=== PATIENT | female | born 1995 | race Caucasian/White ===

== ENCOUNTER 2017-02-28 02:37 | Inpatient (IN) | payer OTHER ==
[2017-02-28] MEDS ORDERED: D5W-LR W/ 20 UNITS OXYTOCIN 1,000 ML IV SCH (03:15)
[2017-02-28] MEDS ORDERED: BUTORPHANOL TARTRATE 1 MG/ML VIAL IVPB ONE (03:30)
[2017-02-28] MEDS ORDERED: WITCH HAZEL 50% (TUCKS) 40 PAD/JAR PAD TP PRN (04:31)
[2017-02-28] MEDS ORDERED: oxyCODONE HCL 5 MG TABLET PO PRN (04:31)
[2017-02-28] MEDS ORDERED: BENZOCAINE 28 GM HEMORRHOIDAL OINTMENT TP PRN (04:31)
[2017-02-28] MEDS ORDERED: BENZOCAINE 20% 57 GM BOTTLE TP PRN (04:31)
[2017-02-28] MEDS ORDERED: BISACODYL 10 MG SUPP.RECT RC PRN (04:31)
[2017-02-28] MEDS ORDERED: METHYLERGONOVINE MALEATE 0.2 MG/1 ML AMP IM PRN (04:31)
--- NOTE | 2017-02-28 04:42 | HP ---
Past Medical History - Primary Care Physician PCP:: Shelby Martinez - Admission Chief Complaint: 21 yrs 40.2 weeks by sono & 41.2 weeks by dates s/p home delivery brought by ambulence . onset LP whole day, strong since Midnight. at 1.42am , baby Boy, cried immediately , attended by her mother. placenta ,2.00am History of Present Illness: PNC at [address] [place] [address] . pnwork up : Apos, HBSAg neg, Rpr nr, Hiv neg, Rubella pos, pngt 108, quantiferon neg , Gbs neg sono reviewed History Source: Patient, Medical Record Limitations to Obtaining History: No Limitations - Past Medical History SERVICE ADVOCATE CONTACT: No: Migraine, Seizure Cardiovascular: No: HTN Pulmonary: No: Asthma Gastrointestinal: Yes: Constipation Renal/: No: UTI ...: 3 ...Para: 1 ...Term: 1 (02/09/16 7'6") ...Spon : 1 (2014) ...LMP: 05/14/16 ... Weeks Gestation by Dates: 41.2 ...EDC by Dates: 02/18/17 ...EDC by Sono: 02/25/17 (40.3 weeks ) Heme/Onc: Yes: Anemia Infectious Disease: No: AIDS, HIV, STD's Psych: No: Addictions, Anxiety, Bipolar, Depression Musculoskeletal: Yes: Other (h/o shoulder dislocation) - Past Surgical History Past Surgical History: Yes: None Hx Myomectomy: No Hx Transabdominal Cerclage: No - Smoking History Smoking history: Never smoked Have you smoked in the past 12 months: No - Alcohol/Substance Use Hx Alcohol Use: No History of Substance Use: reports: None - Social History History of Recent Travel: No Home Medications - Allergies Allergies/Adverse Reactions: Allergies Allergy/AdvReac Type Severity Reaction Status Date / Time No Known Allergies Allergy Verified 02/07/16 12:15 - Home Medications Home Medications: Ambulatory Orders Vit/Iron Fumarate/FA [ Tablet] 1 tab PO DAILY 02/07/16 Acetaminophen [Tylenol .Regular Strength -] 650 mg PO Q3H PRN #0 tablet Benzocaine [Americaine 20% [place] -] 1 spray TP PRN PRN #0 bottle 02/11/16 Ferrous Sulfate [Feosol] 325 mg PO BIDWM #60 ud 02/11/16 Ibuprofen [Motrin -] 200 mg PO Q4H PRN #0 tablet 02/11/16 Ibuprofen [Motrin -] 400 mg PO QID #28 tablet 02/11/16 Physical Exam - Maternity Vital Signs: Selected Entries 02/28/17 03:00 Temperature 98.4 F Pulse Rate 99 H Blood Pressure 109/94 Weight 170 lb Constitutional: Yes: Well Nourished, Anxious, Moderate Distress Eyes: Yes: WNL HENT: Yes: WNL, Normocephalic Neck: Yes: WNL Cardiovascular: Yes: WNL, Regular Rate and Rhythm Lungs: Clear to auscultation Breast(s): Yes: WNL - Abdominal Exam/OB Fundal Height: 18 (pp uterus, s/p home delivery ) - Vaginal Exam/OB Vaginal Bleediing: Moderate (s/p home delivery vaginal delivery, blood clots removed from vagina & uterus MEU was done , ut empty 2nd degree laceration is noted. MA exam mucosa & sphincter intact) - Physical Exam Musculoskeletal: Yes: WNL Extremities: Yes: WNL. No: Calf Tenderness Edema: Yes Edema: LLE: 1+, RLE: 1+ Integumentary: Yes: Other (vaginal laceration) Deep Tendon Reflex Grade: Normal +2 ...Motor Strength: WNL Psychiatric: Yes: WNL, Alert, Oriented - Labs Lab Results: Laboratory Tests 02/28/17 02/28/17 02/28/17 04:15 04:15 04:15 WBC 20.1 H D Hgb 9.4 L Hct 29.1 L Plt Count 269 D Neutrophils % 94.6 H Lymphocytes % 3.1 L D Monocytes % 2.1 L INR 1.03 PTT (Actin FS) 24.9 L Sodium 140 Potassium 3.8 Chloride 108 H Carbon Dioxide 20 L BUN 7 D Creatinine 0.7 D Random Glucose 216 H D Calcium 8.2 L Opiates Screen Methadone Screen Cocaine Screen U Marijuana (THC) Screen RPR Titer 02/28/17 02/28/17 04:15 10:00 WBC Hgb Hct Plt Count Neutrophils % Lymphocytes % Monocytes % INR PTT (Actin FS) Sodium Potassium Chloride Carbon Dioxide BUN Creatinine Random Glucose Calcium Opiates Screen Negative Methadone Screen Negative Cocaine Screen Negative U Marijuana (THC) Screen Negative RPR Titer Nonreactive Problem List - Problems (1) Post-term , 40-42 weeks of gestation Code(s): O48.0 - POST-TERM (2) Vaginal delivery Code(s): O80 - ENCOUNTER FOR FULL-TERM UNCOMPLICATED DELIVERY (3) Second degree perineal laceration during delivery Code(s): O70.1 - SECOND DEGREE PERINEAL LACERATION DURING DELIVERY Assessment/Plan 21 yrs , 40.3 weeks by sono, 41.2 weeks by dates s/p Home deivery of infant & placenta , gbs neg Imp 2 nd degree laceration MEU done . IV Stadol 2 mg sta was given for analgesia Laceration sutured in layers with chr catgut #2/0 under local anesthesia xylocaine 1% MA ex after completion of suturing was done , sphincter & mucosa intact . bladder cathetrized & emptied 250 ml maricarmen color urine
[2017-02-28 04:53] LABS: BASOPHIL 0.1 % (0-2.0); EOSINOPHIL 0.1 % (0-4.5); MCH 27.3 pg (25.7-33.7); MCHC 32.2 g/dl (32.0-36.0); MEAN CELL VOLUME 84.9 fl (80-96); NEUTROPHILS 94.6 % (42.8-82.8); PLATELET COUNT 269 K/MM3 (134-434); RDW 16.7 % (11.6-15.6); WHITE BLOOD COUNT 20.1 K/mm3 (4.0-10.0)
[2017-02-28 05:05] LABS: INR 1.03 (0.82-1.09); PROTHROMBIN TIME (PATIENT) 11.3 SEC (9.98-11.88)
[2017-02-28 05:08] LABS: ACTIVATED PTT 24.9 SECONDS (26.9-34.4)
[2017-02-28 05:11] LABS: CALCIUM 8.2 mg/dL (8.5-10.1); CREATININE 0.7 mg/dL (0.55-1.02)
[2017-02-28 07:21] VITALS: BMI 28.3
[2017-02-28] MEDS: ACETAMINOPHEN 325 MG TABLET (FP) PO PRN ×2 (08:08→16:51)
[2017-02-28] MEDS: FERROUS SO4 325 MG TABLET (FP) PO SCH ×2 (08:08→16:51)
[2017-02-28] MEDS: IBUPROFEN 600 MG TABLET (FP) PO PRN ×2 (08:09→16:51)
[2017-02-28] MEDS: PRENATAL VITAMINS W/ FOLIC ACID TABLET (FP) PO SCH (09:28)
[2017-02-28 11:16] LABS: URINE MARIJUANA THC NEGATIVE ng/ml (CUTOFF=50)
--- NOTE | 2017-03-01 07:29 | PN ---
Post Progress Note Type of Delivery: Vital Signs: Vital Signs Temperature 97.8 F 02/28/17 22:00 Pulse Rate 97 H 02/28/17 22:00 Respiratory Rate 20 02/28/17 22:00 Blood Pressure 99/53 02/28/17 22:00 O2 Sat by Pulse Oximetry (%) Breast Exam: Yes: Soft Uterus: Yes: Fundus Firm Incision: Yes: Dressing dry and intact Abdomen/GI: Yes: Abdomen soft Lochia: Yes: Rubra Lochia, amount: Small Extremities: Yes: Calves non-tender Perineum: Yes: Intact Activity: Ambulating - Labs Labs: CBC WBC 20.1 K/mm3 (4.0-10.0) H D 02/28/17 04:15 RBC 3.43 M/mm3 (3.60-5.2) L 02/28/17 04:15 Hgb 9.4 GM/dL (10.7-15.3) L 02/28/17 04:15 Hct 29.1 % (32.4-45.2) L 02/28/17 04:15 MCV 84.9 fl (80-96) 02/28/17 04:15 MCHC 32.2 g/dl (32.0-36.0) 02/28/17 04:15 RDW 16.7 % (11.6-15.6) H D 02/28/17 04:15 Plt Count 269 K/MM3 (134-434) D 02/28/17 04:15 MPV 8.0 fl (7.5-11.1) 02/28/17 04:15 Neutrophils % 94.6 % (42.8-82.8) H 02/28/17 04:15 Lymphocytes % 3.1 % (8-40) L D 02/28/17 04:15 Monocytes % 2.1 % (3.8-10.2) L 02/28/17 04:15 Eosinophils % 0.1 % (0-4.5) D 02/28/17 04:15 Basophils % 0.1 % (0-2.0) 02/28/17 04:15 Assessment/Plan as above reg diet oob check labs
[2017-03-01] MEDS: FERROUS SO4 325 MG TABLET (FP) PO SCH ×2 (07:53→17:08)
[2017-03-01] MEDS: ACETAMINOPHEN 325 MG TABLET (FP) PO PRN ×2 (07:53→17:08)
[2017-03-01] MEDS: IBUPROFEN 600 MG TABLET (FP) PO PRN ×2 (07:54→17:09)
[2017-03-01] MEDS: PRENATAL VITAMINS W/ FOLIC ACID TABLET (FP) PO SCH (09:12)
[2017-03-01 09:16] LABS: BASOPHIL 0.4 % (0-2.0); EOSINOPHIL 2.6 % (0-4.5); MCH 27.7 pg (25.7-33.7); MCHC 32.3 g/dl (32.0-36.0); MEAN CELL VOLUME 85.8 fl (80-96); NEUTROPHILS 73.5 % (42.8-82.8); PLATELET COUNT 277 K/MM3 (134-434); RDW 16.9 % (11.6-15.6); WHITE BLOOD COUNT 13.6 K/mm3 (4.0-10.0)
[2017-03-01] MEDS ORDERED: SENNOSIDES/DOCUSATE COMBO (SENNA PLUS) TABLET (UD) PO PRN (22:00)
[2017-03-02] MEDS: FERROUS SO4 325 MG TABLET (FP) PO SCH (08:18)
[2017-03-02] MEDS: IBUPROFEN 600 MG TABLET (FP) PO PRN (08:18)
[2017-03-02] MEDS: ACETAMINOPHEN 325 MG TABLET (FP) PO PRN (08:19)
[2017-03-02] MEDS: PRENATAL VITAMINS W/ FOLIC ACID TABLET (FP) PO SCH (09:18)
--- NOTE | 2017-03-02 09:21 | PN ---
Progress Note (short form) - Note Progress Note: ppd 1 doing well, no c/o CBC, BMP 03/01/17 08:00 02/28/17 04:15 Last Vital Signs Temp Pulse Resp BP Pulse Ox 98.3 F 100 H 20 116/66 03/01/17 20:47 03/01/17 20:47 03/01/17 20:47 03/01/17 20:47 abdomen soft, uterus firm, non tender lochia mild no calf tenderness plan ambulate, d/c home, rtc 4 weeks
[2017-03-02 14:10] VITALS: BP 110/77; PULSE 109; TEMP 98.8
--- NOTE | 2017-03-02 14:18 | PATH ---
Surgical Pathology Report Patient Name: MATTHEW CHANEL Med. Rec. 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 Specimen(s) Received PLACENTA Clinical History , 40.3 weeks; home delivery Final Diagnosis PLACENTA, DELIVERY: FOCALLY DISRUPTED THIRD TRIMESTER PLACENTA WITH FOCAL INFARCT AND FIBRIN THROMBUS WITH CALCIFICATIONS, MODERATE TO MARKED INCREASE IN PREVILLOUS, PERIVILLOUS, AND PRECHORIONIC FIBRIN DEPOSITION, DYSTROPHIC CALCIFICATIONS, THREE VESSEL UMBILICAL CORD, AND PLACENTAL MEMBRANES WITH AMNION DEGENERATION. Electronically Signed Mookie Osorio M.D. Gross Description The specimen is received fresh, labeled "placenta" and is a 596 gram, 19.5 x 15.0 x 2.0 cm placenta with attached membranes and umbilical cord. The attached membranes are bell, translucent with focal opacities and insert marginally. The umbilical cord measures 27 cm in length and averages 1.0 cm in diameter. The cord inserts eccentrically, 6 cm to the nearest margin. No true knots or strictures are identified. Cut surface of the umbilical cord reveals 3 vessels. The surface is babb-blue with fibrin deposition and appropriate caliber vessels. The maternal surface is red-brown with focal defects. Sectioning reveals a 1.0 cm in greatest dimension intraparenchymal lesion. The remaining placental parenchyma is red-brown and spongy. Inspector Water Pollution Control sections are submitted in 4 cassettes as follows: 1-membrane rolls and umbilical cord; 2-lesion; 3-4-full thickness sections of placenta. 03/01/2017 saudi03/01/2017
--- NOTE | 2017-03-06 18:05 | DS ---
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 No: Calf Tenderness Edema: Yes Edema: LLE: Trace, RLE: Trace Neurological: Yes: WNL ...Motor Strength: WNL Psychiatric: Yes: WNL, Alert, Oriented Labs: CBC, BMP 03/01/17 08:00 02/28/17 04:15 Delivery - Delivery Vaginal Delivery: No Problems (Home delivery) Type of Anesthesia: Local Episiotomy/Laceration: 2nd degree (laceration sutured in layers with chr catgut #2/0) Delivery, Single - Stages of Labor Date 1st Stage Initiatied: 02/28/17 Time 1st Stage Initiated: 00:00 Date of Delivery: 02/28/17 Time of Delivery: 01:42 (home delivery ) Time Placenta Delivered: 02:00 Placenta: Yes: Spontaneous (at home) - Condition of Global Position System Technician/Correctional Therapy Teacher Present: No Infant Gender: Male Weight: 8 lb 13 oz - Nora Feeding Plan Initial Plan: Elected not to breastfeed exclusively throughout hospitalization Remarks - Remarks Remarks: 21 yrs 40.2 weeks by sofiao, 41.2 weeks by arslan had delivery at home & was brought by EMT 2 nd degree laceration was sutured Pp course was uneventful. anemia was counselled discharged on 03/02/17 Discharge Summary Reason For Visit: HOME DELIVERY Condition: Stable - Instructions Diet, Activity, Other Instructions: Post Instructions DIET: Continue good diet high in protein, calcium, and iron rich foods. Drink at least eight (8) glasses of water daily in addition to other fluids. ct Regular diet MEDICATIONS: Continue vitamins and iron as previously directed. Motrin and Tylenol may be taken for minor discomfort. ACTIVITY: Mild to moderate exercise may be started in two (2) weeks. Take frequent rest periods. Resume normal activity after six (6) week check up. WOUND CARE OF OPERATIVE SITE: Continue use of perineal bottle until vaginal discharge stops. Keep area clean. Shower daily. Keep abdominal wound dry. Report any drainage or redness to physician. Tub baths, tampons and douches are not permitted for [address] Breast feeding & or Bottle feeding BREAST CARE: (For those that are not breast feeding): If engorgement occurs: Wear tight fitting bra. Take Tylenol or Motrin for pain. Apply cold packs (ice in bags to each breast ) FAMILY PLANNING: There are many control alternatives to pursue and they should be discussed at your first office visit. You may resume sexual activity after your six (6) week check up. (Remember, breast feeding is not a contraceptive) NEXT PHYSICIAN APPOINTMENT: Be certain to call for a six (6) week appointment, unless otherwise directed. Call Clinic or got to Emergency Dept if you have any of the following: Heavy vaginal bleeding Painful urination Leg pain Unusual odor noted to vaginal bleeding High fever Red streaking noted on breast Referrals: Shelby Martinez MD [Staff Physician] - Disposition: HOME - Home Medications Comprehensive Discharge Medication List: Ambulatory Orders Vit/Iron Fumarate/FA [ Tablet] 1 tab PO DAILY 01/25/16 Vit/Iron Fumarate/FA [ Tablet] 1 tab PO DAILY 02/07/16 Acetaminophen [Tylenol .Regular Strength -] 650 mg PO Q3H PRN #0 tablet Benzocaine [Americaine 20% [place] -] 1 spray TP PRN PRN #0 bottle 02/11/16 Ibuprofen [Motrin -] 200 mg PO Q4H PRN #0 tablet 02/11/16 Ibuprofen [Motrin -] 400 mg PO QID #28 tablet 02/11/16 Acetaminophen [Tylenol .Regular Strength -] 650 mg PO Q3H PRN #0 tablet Ferrous Sulfate [Feosol] 325 mg PO BIDWM #60 tab 03/01/17 Ferrous Sulfate [Feosol] 325 mg PO BIDWM #60 tab 03/01/17 Ibuprofen [Motrin -] 200 mg PO Q4H PRN #0 tablet 03/01/17 Vitamins (Sjr) - 1 tab PO DAILY #30 tablet 03/01/17 Witch Alicia 50% (Tucks) [Tucks Pads -] 1 pad TP PRN PRN #0 pad 03/01/17
== END 2017-03-02 13:30 | disposition home or self-care (01) | DRG 560 ==
LOC: JLDR 02:37 → J3W 05:30
PROVIDERS: ADMIT Obstetrics & Gynecology; ATTEND Obstetrics & Gynecology
PROC: 0KQM0ZZ Repair Perineum Muscle, Open Approach (ICD-10-PCS; principal; 2017-02-28)
DX: O70.1 Second degree perineal laceration during delivery (principal)
CPT/HCPCS: 36415; 59409; 80048; 80307; 85025; 85610; 85730; 86593; 86850; 86900; 86901; 88307-TC

== ENCOUNTER 2018-03-16 01:04 | Emergency (ER) | payer OTHER ==
--- NOTE | 2018-03-16 01:14 | PDOC ---
History of Present Illness - General Chief Complaint: Pain Stated Complaint: RT ANKLE PAIN Time Seen by Provider: 03/16/18 01:09 History Source: Patient Exam Limitations: No Limitations - History of Present Illness Initial Comments: 03/16/18 01:16 This is a 22-year-old female complaining of one month of ankle descended to get it checked out tonight said she was bringing her son into the ER. Patient said that it doesn't hurt most of the time but occasionally concert when she steps on it a certain way. Otherwise patient is complaining of some mild swelling over the lateral ankle. Patient denies any other complaints. PAST MEDICAL HISTORY: no significant history PAST SURGICAL HISTORY: no significant history FAMILY HISTORY: no pertinant history SOCIAL HISTORY: Pt lives with family and is employed. MEDICATIONS: reviewed ALLERGIES: As per nursing notes Review of Systems General: No fevers or chills, no weakness, no weight loss HEENT: No change in vision. No sore throat,. No ear pain CardioVascular: No chest pain or shortness of breath Respiratory:No cough, or wheezing. Gastrointestinal: no nausea, vomitting, diarrhea or constipation, No rectal bleeding Genitourinary: No dysuria, hematuria, or frequency Musculoskeletal: Right ankle discomfort Neurologic: No headache, vertigo, dizziness or loss of consciousness Psychiatric: nor depression Skin: No rashes or easy bruising Endocrine: no increased thirst or abnormal weight change Allergic: no skin or latex allergy All other systems reviewed and normal GENERAL: The patient is awake, alert, and fully oriented, in no acute distress. HEAD: Normal with no signs of trauma. EYES: Pupils equal, round and reactive to light, extraocular movements intact, sclera anicteric, conjunctiva clear. EXTREMITIES: Normal range of motion, no edema. Right ankle: There is no tenderness on palpation of the bony structures of the ankle or foot. There is some mild edema laterally over the lateral malleolus but no soft tissue ecchymosis or tenderness. Neurovascular is intact. NEUROLOGICAL: Normal speech, normal gait. grossly intact PSYCH: Normal mood, normal affect. SKIN: Warm, Dry, normal turgor, no rashes or lesions noted Assessment and plan: This is a 22-year-old female who comes in complaining of right ankle discomfort after injuring it approximately one month ago patient said it is slowly getting better but decided to get it checked out. Patient was reassured that there is nothing more that needs to be done told to follow-up with an orthopedist in one month if not improved. Past History - Past Medical History Allergies/Adverse Reactions: Allergies Allergy/AdvReac Type Severity Reaction Status Date / Time No Known Allergies Allergy Verified 02/07/16 12:15 Home Medications: Ambulatory Orders NK [No Known Home Medication] 03/16/18 Asthma: No Cancer: No Cardiac Disorders: No Diabetes: No HTN: No Seizures: No Thyroid Disease: No - Immunization History Td Vaccination: No (uncertain) TDAP Vaccination: No (uncertain) Immunization Up to Date: No - Suicide/Smoking/Psychosocial Hx Smoking Status: No Smoking History: Never smoked Have you smoked in the past 12 months: No Number of Cigarettes Smoked Daily: 0 Hx Alcohol Use: No Drug/Substance Use Hx: No Substance Use Type: None Hx Substance Use Treatment: No *DC/Admit/Observation/Transfer Diagnosis at time of Disposition: Right ankle sprain - Discharge Dispostion Disposition: HOME Condition at time of disposition: Stable Decision to Admit order: No - Referrals - Patient Instructions Additional Instructions: Tylenol or Motrin as needed for pain. Give it at least another 3-4 weeks if not improved then follow-up with your primary care doctor or an orthopedist. Return to the emergency department immediately with ANY new, persistent or worsening symptoms. Continue any medications as previously prescribed by your physician. You should follow up with your primary doctor as soon as possible regarding today's emergency department visit. . Please make sure your doctor reviews the results of your emergency evaluation. Thank you for coming to the Emergency Department today for your care. It was a pleasure to see you today. Please note that your evaluation is INCOMPLETE until you follow-up with your doctor. - Post Discharge Activity
[2018-03-16 01:25] VITALS: BP 138/84; PULSE 108; TEMP 98.9; BMI 27.4
== END 2018-03-16 01:37 | disposition home or self-care (01) ==
LOC: FER 01:04
DX: S93.401A Sprain of unspecified ligament of right ankle, initial encounter (principal); X58.XXXA Exposure to other specified factors, initial encounter; Y93.89 Activity, other specified; Y92.9 Unspecified place or not applicable
CPT/HCPCS: 99282-25

== ENCOUNTER 2019-11-23 11:05 | Emergency (ER) | payer OTHER ==
[2019-11-23 11:09] VITALS: TEMP 98.4; BMI 29.9
[2019-11-23] MEDS ORDERED: SODIUM CHLORIDE 1,000 ML IV STA ×2 (11:34→12:39)
[2019-11-23] MEDS ORDERED: ONDANSETRON 4 MG/2 ML VIAL IVPUSH ONE (11:34)
[2019-11-23] MEDS ORDERED: PANTOPRAZOLE SODIUM 40 MG VIAL IVPUSH ONE (11:34)
[2019-11-23] MEDS ORDERED: PANTOPRAZOLE SODIUM 40 MG VIAL ONE (11:40)
[2019-11-23] MEDS ORDERED: ONDANSETRON 4 MG/2 ML VIAL ONE (11:40)
[2019-11-23 12:30] LABS: BASO % 0.3 % (0-2.0); EOS % 0.2 % (0-4.5); HEMATOCRIT 45.7 % (32.4-45.2); HEMOGLOBIN 15.1 GM/dL (10.7-15.3); LYMPH % 5.8 % (8-40); MCH 30.8 pg (25.7-33.7); MCHC 33.1 g/dl (32.0-36.0); MEAN CELL VOLUME 93.2 fl (80-96); MEAN PLT VOLUME 8.5 fl (7.5-11.1); MONO % 2.8 % (3.8-10.2); NEUT % 90.9 % (42.8-82.8); PLATELET COUNT 425 K/MM3 (134-434); RBC 4.91 M/mm3 (3.60-5.2); RDW 13.1 % (11.6-15.6); WHITE BLOOD COUNT 15.5 K/mm3 (4.0-10.0)
[2019-11-23 12:38] LABS: PH,URINE >= 9.0 (5.0-8.0); URINE APPEARANCE CLEAR; URINE BILIRUBIN NEGATIVE (NEGATIVE); URINE COLOR YELLOW; URINE GLUCOSE (UA) NEGATIVE (NEGATIVE); URINE KETONE NEGATIVE (NEGATIVE); URINE LEUK ESTERASE NEGATIVE (NEGATIVE); URINE NITRITE NEGATIVE (NEGATIVE); URINE PROTEIN TRACE (NEGATIVE); URINE UROBILINOGEN 0.2 mg/dL (0.2-1.0)
--- NOTE | 2019-11-23 12:41 | PDOC ---
History of Present Illness - General History Source: Patient Exam Limitations: No Limitations - History of Present Illness Travel History: No Initial Comments: 11/23/19 12:37 23-year-old female presents to ED with complaints of sudden onset of nausea vomiting approximately half hour after waking up this morning. Patient states she vomit approximately 10 times since. Patient denies any fever, chills, diarrhea but does state upper abdominal cramping and did notice streaks of blood in her last episode of vomiting which prompted her to come to the ER. Patient denies GI history, recent travel, recent illness, or recent sick contacts. Patient denies alcohol or drug use. Patient has no urinary complaints and states her menstrual cycle is normally irregular but did have last month. Timing/Duration: reports: intermittent Quality: reports: mild, cramping Abdominal Pain Onset Location: reports: epigastric Pain Radiation: reports: no radiation Activities at Onset: reports: none Aggravating Factors: improves with: None Alleviating Factors: improves with: None <Mikayla Jeter - Last Filed: 11/23/19 15:11> <Viri Torres - Last Filed: 11/24/19 11:11> - General Chief Complaint: Nausea/Vomiting Stated Complaint: VOMITING BLOOD/HEADACHE Time Seen by Provider: 11/23/19 11:33 Past History - Travel Traveled outside of the country in the last 30 days: No Close contact w/someone who was outside of country & ill: No - Past Medical History Asthma: No Cancer: No Cardiac Disorders: No COPD: No Diabetes: No HTN: No Seizures: No Thyroid Disease: No - Immunization History Td Vaccination: No (uncertain) TDAP Vaccination: No (uncertain) Immunization Up to Date: No - Psycho Social/Smoking Cessation Hx Smoking Status: No Smoking History: Never smoked Have you smoked in the past 12 months: No Number of Cigarettes Smoked Daily: 0 Hx Alcohol Use: No Drug/Substance Use Hx: No Substance Use Type: None Hx Substance Use Treatment: No Patient Lives Alone: No Lives with/in: parents <Mikayla Jeter - Last Filed: 11/23/19 15:11> <Viri Torres - Last Filed: 11/24/19 11:11> - Past Medical History Allergies/Adverse Reactions: Allergies Allergy/AdvReac Type Severity Reaction Status Date / Time No Known Allergies Allergy Verified 11/23/19 11:09 Home Medications: Ambulatory Orders Ondansetron HCl [Zofran] 4 mg PO TID PRN #12 tablet 11/23/19 Review of Systems - Review of Systems Able to Perform ROS?: Yes Constitutional: No: Symptoms Reported HEENTM: No: Symptoms Reported Respiratory: No: Symptoms reported Cardiac (ROS): No: Symptoms Reported ABD/GI: Yes: Nausea, Poor Appetite, Poor Fluid Intake, Vomiting, Abdominal cramping : No: Symptoms Reported Musculoskeletal: No: Symptoms Reported Integumentary: No: Symptoms Reported Neurological: Yes: Weakness (Mild generalized) Hematologic/Lymphatic: No: Symptoms Reported <Mikayla Jeter - Last Filed: 11/23/19 15:11> *Physical Exam - Vital Signs Last Vital Signs Temp Pulse Resp BP Pulse Ox 98.4 F 105 H 18 109/77 99 11/23/19 11:30 11/23/19 11:30 11/23/19 11:30 11/23/19 11:30 11/23/19 11:30 - Physical Exam General Appearance: Yes: Nourished, Appropriately Dressed. No: Apparent Distress HEENT: negative: Pale Conjunctivae Neck: positive: Supple Respiratory/Chest: positive: Lungs Clear, Normal Breath Sounds. negative: Respiratory Distress, Accessory Muscle Use Cardiovascular: positive: Regular Rhythm, Tachycardia. negative: Murmur Gastrointestinal/Abdominal: positive: Normal Bowel Sounds, Soft, Tenderness ( Epigastric). negative: Distended, Guarding, Rebound Musculoskeletal: negative: CVA Tenderness Extremity: positive: Normal Inspection Integumentary: positive: Normal Color, Warm, Moist Neurologic: positive: Motor Strength 5/5 (Ambulatory) <Mikayla Jeter - Last Filed: 11/23/19 15:11> - Vital Signs Last Vital Signs Temp Pulse Resp BP Pulse Ox 98.4 F 97 H 17 107/78 99 11/23/19 11:30 11/23/19 14:25 11/23/19 14:25 11/23/19 14:25 11/23/19 11:30 <Viri Torres - Last Filed: 11/24/19 11:11> ED Treatment Course - LABORATORY CBC & Chemistry Diagram: 11/23/19 13:35 11/23/19 11:57 - ADDITIONAL ORDERS Additional order review: 11/23/19 11:57 RBC 4.91 MCV 93.2 MCHC 33.1 RDW 13.1 D MPV 8.5 Neutrophils % 90.9 H Lymphocytes % 5.8 L D Monocytes % 2.8 L Eosinophils % 0.2 D Basophils % 0.3 - Medications Given in the ED: ED Medications Discontinued Medications Generic Name Dose Route Start Last Admin Trade Name Trumanq PRN Reason Stop Dose Admin Sodium Chloride 1,000 mls @ 1,000 mls/hr 11/23/19 11:34 11/23/19 12:05 Normal Saline - IV 11/23/19 12:33 1,000 mls/hr ASDIR STA Administration Ondansetron HCl 4 mg 11/23/19 11:34 11/23/19 12:05 Zofran Injection IVPUSH 11/23/19 11:35 4 mg ONCE ONE Administration Pantoprazole Sodium 40 mg 11/23/19 11:34 11/23/19 12:05 Protonix Iv IVPUSH 11/23/19 11:35 40 mg ONCE ONE Administration <Mikayla Jeter - Last Filed: 11/23/19 15:11> - LABORATORY CBC & Chemistry Diagram: 11/23/19 13:35 11/23/19 11:57 - ADDITIONAL ORDERS Additional order review: 11/23/19 11/23/19 13:35 11:57 RBC 3.95 4.91 MCV 93.6 93.2 MCHC 33.3 33.1 RDW 13.0 13.1 D MPV 8.3 8.5 Neutrophils % 89.3 H 90.9 H Lymphocytes % 7.0 L D 5.8 L D Monocytes % 3.1 L 2.8 L Eosinophils % 0.2 0.2 D Basophils % 0.4 0.3 - Medications Given in the ED: ED Medications Discontinued Medications Generic Name Dose Route Start Last Admin Trade Name Trumanq PRN Reason Stop Dose Admin Sodium Chloride 1,000 mls @ 1,000 mls/hr 11/23/19 11:34 11/23/19 12:05 Normal Saline - IV 11/23/19 12:33 1,000 mls/hr ASDIR STA Administration Sodium Chloride 1,000 mls @ 1,000 mls/hr 11/23/19 12:39 11/23/19 12:55 Normal Saline - IV 11/23/19 13:38 1,000 mls/hr ASDIR STA Administration Ketorolac Tromethamine 30 mg 11/23/19 14:12 11/23/19 14:22 Toradol Injection - IVPUSH 11/23/19 14:13 30 mg ONCE ONE Administration Ondansetron HCl 4 mg 11/23/19 11:34 11/23/19 12:05 Zofran Injection IVPUSH 11/23/19 11:35 4 mg ONCE ONE Administration Pantoprazole Sodium 40 mg 11/23/19 11:34 11/23/19 12:05 Protonix Iv IVPUSH 11/23/19 11:35 40 mg ONCE ONE Administration <Viri Torres - Last Filed: 11/24/19 11:11> Medical Decision Making - Medical Decision Making 11/23/19 12:00 Chief complaint nausea vomiting with upper abdominal cramping since this a.m. Patient with blood-streaked emesis on last episode. Exam: Patient with mild epigastric tenderness Tachycardic Plan: Labs, urine, antiemetics, Protonix, IV fluids 11/23/19 14:10 Laboratory Tests 11/23/19 11/23/19 11/23/19 11:57 11:57 11:57 WBC 15.5 H Hgb 15.1 Hct 45.7 H D Absolute Neuts (auto) 14.1 H Neutrophils % 90.9 H Lymphocytes % 5.8 L D Monocytes % 2.8 L Chloride 108 H Anion Gap 5 L Random Glucose 102 Calcium 9.8 Magnesium Total Protein 8.8 H Lipase Urine pH Ur Specific [place] Urine Protein Urine Glucose (UA) Urine Ketones Urine Nitrite Urine Bilirubin Ur Leukocyte Esterase Urine HCG, Qual Negative 11/23/19 11/23/19 11/23/19 11:57 11:57 13:35 WBC 14.3 H Hgb 12.3 Hct 37.0 D Absolute Neuts (auto) 12.8 H Neutrophils % 89.3 H Lymphocytes % 7.0 L D Monocytes % 3.1 L Chloride Anion Gap Random Glucose Calcium Magnesium 2.1 Total Protein Lipase 59 L Urine pH >= 9.0 H D Ur Specific [place] 1.025 Urine Protein Trace Urine Glucose (UA) Negative Urine Ketones Negative Urine Nitrite Negative Urine Bilirubin Negative Ur Leukocyte Esterase Negative Urine HCG, Qual States feeling much better and tolerated ice chips with apple juice. Patient with mild epigastric pain. Patient ordered for Toradol will discharge home with Zofran and supportive care instructions along with return precautions <Mikayla Jeter - Last Filed: 11/23/19 15:11> - Medical Decision Making I reviewed the case with the mid-level practitioner and agree with the mid- level practitioner's assessment, diagnosis and disposition. <Viri Torres - Last Filed: 11/24/19 11:11> Discharge - Discharge Information Problems reviewed: Yes <Mikayla Jeter - Last Filed: 11/23/19 15:11> <Viri Torres - Last Filed: 11/24/19 11:11> - Discharge Information Clinical Impression/Diagnosis: Nausea & vomiting Condition: Improved Disposition: HOME - Additional Discharge Information Prescriptions: Ondansetron HCl [Zofran] 4 mg PO TID PRN #12 tablet PRN Reason: Nausea And/Or Vomiting - Follow up/Referral Referrals: Precious Johnson, [facility] MANAGER [Primary Care Provider] - - Patient Discharge Instructions Patient Printed Discharge Instructions: DI for Vomiting -- Adult Additional Instructions: Follow a bland diet for the next 2 to 3 days and advance as tolerated. Avoid spicy greasy and acidy foods. Drink electrolyte-based fluids such as Gatorade or even juice and marcos barbara take Zofran as needed for nausea. Return to ED if any of your symptoms worsen and you are unable to tolerate anything by mouth. - Post Discharge Activity
[2019-11-23 12:50] LABS: MAGNESIUM 2.1 mg/dL (1.8-2.4)
[2019-11-23 12:57] LABS: ALBUMIN 4.4 g/dl (3.4-5.0); BILIRUBIN,TOTAL 0.3 mg/dL (0.2-1); BLOOD UREA NITROGEN 11.4 mg/dL (7-18); CALCIUM 9.8 mg/dL (8.5-10.1); CREATININE 0.7 mg/dL (0.55-1.3); POTASSIUM 4.1 mmol/L (3.5-5.1); TOT PROT 8.8 g/dl (6.4-8.2)
[2019-11-23 13:49] LABS: BASO % 0.4 % (0-2.0); EOS % 0.2 % (0-4.5); HEMOGLOBIN 12.3 GM/dL (10.7-15.3); MCH 31.1 pg (25.7-33.7); MCHC 33.3 g/dl (32.0-36.0); MEAN CELL VOLUME 93.6 fl (80-96); MEAN PLT VOLUME 8.3 fl (7.5-11.1); MONO % 3.1 % (3.8-10.2); NEUT % 89.3 % (42.8-82.8); PLATELET COUNT 341 K/MM3 (134-434); RBC 3.95 M/mm3 (3.60-5.2); WHITE BLOOD COUNT 14.3 K/mm3 (4.0-10.0)
[2019-11-23] MEDS ORDERED: KETOROLAC TROMETHAMINE 30 MG/1 ML VIAL IVPUSH ONE (14:12)
[2019-11-23] MEDS ORDERED: KETOROLAC TROMETHAMINE 30 MG/1 ML VIAL ONE (14:16)
[2019-11-23 14:29] VITALS: BP 107/78; PULSE 97
== END 2019-11-23 14:27 | disposition home or self-care (01) ==
LOC: JER 11:05
PROC: 3E0337Z Introduction of Electrolytic and Water Balance Substance into Peripheral Vein, Percutaneous Approach (ICD-10-PCS; principal; 2019-11-23)
PROC: 3E033GC Introduction of Other Therapeutic Substance into Peripheral Vein, Percutaneous Approach (ICD-10-PCS; 2019-11-23)
PROC: 3E033GC Introduction of Other Therapeutic Substance into Peripheral Vein, Percutaneous Approach (ICD-10-PCS; 2019-11-23)
PROC: 3E0333Z Introduction of Anti-inflammatory into Peripheral Vein, Percutaneous Approach (ICD-10-PCS; 2019-11-23)
DX: R11.2 Nausea with vomiting, unspecified (principal)
CPT/HCPCS: 36415; 80053; 81003; 83690; 83735; 84703; 85025; 96361; 96374; 96375; 99284-25; J7030

== ENCOUNTER 2020-05-11 06:04 | Emergency (ER) | payer OTHER ==
[2020-05-11 06:13] VITALS: BP 128/81; PULSE 113; TEMP 99.8; BMI 32.5
--- NOTE | 2020-05-11 06:40 | PDOC ---
History of Present Illness - General Chief Complaint: Respiratory Stated Complaint: productive cough,fever,sore throat Time Seen by Provider: 05/11/20 06:20 History Source: Patient Exam Limitations: No Limitations - History of Present Illness Initial Comments: This is a 24-year-old female who comes in complaining of multiple symptoms consistent with COVID including headache, cough, fever, abdominal pain, body aches. Patient has no known covert exposure. Allergies: as per nursing notes Past Medical History: none Social history: Lives with family. No smoking. No alcohol. No illicit drugs. Surgical history: None General: + fevers or chills, no weakness, no weight loss HEENT: No change in vision. No sore throat,. No ear pain CardioVascular: no chest discomfort. No shortness of breath, Respiratory:+ cough, or wheezing. Gastrointestinal: no nausea, vomiting, diarrhea or constipation, No rectal bleeding , + abdominal pain Genitourinary: No dysuria, hematuria, or frequency Musculoskeletal: No joint or muscle pain or swelling Neurologic: No headache, vertigo, dizziness or loss of consciousness Psychiatric: nor depression Skin: No rashes or easy bruising Endocrine: no increased thirst or abnormal weight change Allergic: no skin or latex allergy All other systems reviewed and normal Exam: General: Well-nourished well-developed individual, no acute distress HEENT: Throat: Normal, tonsils normal, no erythema or exudate Neck: Supple, no meningeal signs, no lymphadenopathy Eyes::Pupils equal reactive and round, extraocular motion intact Chest: Nontender to palpation Cardiac: S1-S2 normal, regular rate and rhythm, no murmurs rubs or gallops Respiratory: Lungs clear to auscultation bilateral Abdomen: Soft, nondistended, normal bowel sounds, there is no tenderness on palpation diffusely Extremities: Warm, dry, no cyanosis, clubbing, or edema Skin: No rashes Neuro: Alert and oriented x3, CN II - XII intact, nonfocal exam with normal st rength, normal sensation, normal reflexes, normal gait, Psych: Normal mood and affect Assessment and plan: This is a 24-year-old female with probable COVID. Patient tested for COVID and discharged as her sats were fine and she was tolerating p.o.'s. Patient given note for no work until her culture test is back and will self quarantine. Past History - Medical History Allergies/Adverse Reactions: Allergies Allergy/AdvReac Type Severity Reaction Status Date / Time acetaminophen [From Tylenol] AdvReac Verified 05/11/20 06:06 pamabrom [From Midol] AdvReac Verified 05/11/20 06:07 Asthma: No Cancer: No Cardiac Disorders: No COPD: No Diabetes: No HTN: No Seizures: No Thyroid Disease: No - Immunization History Td Vaccination: No (uncertain) TDAP Vaccination: No (uncertain) Immunization Up to Date: No - Psycho-Social/Smoking History Smoking Status: No Smoking History: Never smoked Have you smoked in the past 12 months: No Number of Cigarettes Smoked Daily: 0 Information on smoking cessation initiated: No - Substance Abuse Hx (Audit-C & DAST Scrn) How often the patient has a drink containing alcohol: Monthly or less Number of drinks the patient has on a typical day: 1 or 2 Score: In Men: 4 or > Positive; In Women: 3 or > Positive: 1 Screen Result (Pos requires Nsg. Audit-10AR): Negative In the last yr the pt used illegal drug/Rx for NonMed reason: No Score: Yes response is considered Positive: 0 Screen Result (Positive result requires Nsg. DAST-10): Negative *Physical Exam - Vital Signs Last Vital Signs Temp Pulse Resp BP Pulse Ox 99.8 F H 113 H 16 128/81 99 05/11/20 06:09 05/11/20 06:09 05/11/20 06:09 05/11/20 06:09 05/11/20 06:09 Discharge - Discharge Information Problems reviewed: Yes Clinical Impression/Diagnosis: Suspected COVID-19 virus infection Condition: Stable Disposition: HOME - Admission No - Follow up/Referral - Patient Discharge Instructions Patient Printed Discharge Instructions: [facility]-Coronavirus Instructions Additional Instructions: Return to the emergency department immediately with ANY new, persistent or worsening symptoms. Continue any medications as previously prescribed by your physician. You should follow up with your primary doctor as soon as possible regarding today's emergency department visit. . Please make sure your doctor reviews the results of your emergency evaluation. Thank you for coming to the Emergency Department today for your care. It was a pleasure to see you today. Please note that your evaluation is INCOMPLETE until you follow-up with your doctor. Your tested for COVID no work until you have the results of your test if your test is positive you will need to self isolate for 2 weeks if the test is negative you can return to work on Sunday - Post Discharge Activity Work/Back to School Note: Back to Work
== END 2020-05-11 06:43 | disposition home or self-care (01) ==
LOC: FER 06:04
DX: Z11.59 Encounter for screening for other viral diseases (principal)
CPT/HCPCS: 99282-25; U0003

== ENCOUNTER 2021-02-01 00:39 | Emergency (ER) | payer OTHER ==
[2021-02-01 01:25] VITALS: BP 117/77; PULSE 93; TEMP 98.4; BMI 29.7
[2021-02-01] MEDS ORDERED: LIDOCAINE HCL 1%, 10 MG/ML (50 mL VIAL) SQ ONE (01:27)
[2021-02-01] MEDS ORDERED: LIDOCAINE HCL 1%, 10 MG/ML (20ML VIAL) ONE (01:28)
[2021-02-01] MEDS ORDERED: LIDOCAINE HCL 2% (20ML MULTI-DOSE VIAL) ONE (01:29)
== END 2021-02-01 02:19 | disposition home or self-care (01) ==
LOC: JER 00:39
DX: S43.004A Unspecified dislocation of right shoulder joint, initial encounter (principal)
CPT/HCPCS: 73030-TC-RT-FY; 99283-25

== ENCOUNTER 2021-09-28 17:16 | Emergency (ER) | payer OTHER ==
[2021-09-28 18:45] VITALS: BP 103/68; PULSE 84; TEMP 98.1; BMI 30.5
[2021-09-28] MEDS ORDERED: DEXAMETHASONE LIQUID 0.5 MG/5 ML PO ONE (20:03)
[2021-09-28] MEDS ORDERED: DEXAMETHASONE SOD PHOSPHATE 10 MG/1 ML VIAL ONE (20:37)
[2021-09-28 21:03] LABS: BASO % 0.4 % (0-2.0); EOS % 1.6 % (0-4.5); HEMATOCRIT 44.1 % (32.4-45.2); LYMPH % 22.1 % (8-40); MCH 31.1 pg (25.7-33.7); MEAN CELL VOLUME 91.3 fl (80-96); MEAN PLT VOLUME 7.7 fl (7.5-11.1); MONO % 5.8 % (3.8-10.2); NEUT % 70.1 % (42.8-82.8); PLATELET COUNT 381 10^3/uL (134-434); RBC 4.83 M/mm3 (3.60-5.2); WHITE BLOOD COUNT 9.5 K/mm3 (4.0-10.0)
[2021-09-28 21:25] LABS: CALCIUM 9.8 mg/dL (8.5-10.1)
[2021-09-28 21:26] LABS: BLOOD UREA NITROGEN 8.1 mg/dL (7-18)
[2021-09-28 21:29] LABS: CREATININE 0.7 mg/dL (0.55-1.3)
== END 2021-09-28 23:52 | disposition home or self-care (01) ==
LOC: JERFT 17:16
DX: R22.1 Localized swelling, mass and lump, neck (principal)
CPT/HCPCS: 36415; 70491-TC; 80048; 85025; 99284-25; Q9967

== ENCOUNTER 2022-08-28 08:12 | Emergency (ER) | payer OTHER ==
[2022-08-28 08:51] VITALS: BP 107/64; PULSE 83; RESP 16; TEMP 98; BMI 28.3
== END 2022-08-28 09:00 | disposition home or self-care (01) ==
LOC: JER 08:12
DX: J02.9 Acute pharyngitis, unspecified (principal)
CPT/HCPCS: 0241U-QW; 99283-25

== ENCOUNTER 2022-11-03 14:55 | Emergency (ER) | payer OTHER ==
[2022-11-03 15:02] VITALS: BP 115/68; PULSE 78; RESP 18; TEMP 98; BMI 29.2
[2022-11-03] MEDS ORDERED: DIPHTH,PERTUSS(ACELL),TET 0.5 ML DISP.SYRIN IM ONE ×2 (15:37→15:38)
== END 2022-11-03 16:05 | disposition home or self-care (01) ==
LOC: JERFT 14:55
PROC: 0HQLXZZ Repair Left Lower Leg Skin, External Approach (ICD-10-PCS; principal; 2022-11-03)
PROC: 3E0234Z Introduction of Serum, Toxoid and Vaccine into Muscle, Percutaneous Approach (ICD-10-PCS; 2022-11-03)
DX: S81.812A Laceration without foreign body, left lower leg, initial encounter (principal); W26.0XXA Contact with knife, initial encounter
CPT/HCPCS: 90715; 99284-25

== ENCOUNTER 2022-12-10 14:28 | Emergency (ER) | payer OTHER ==
[2022-12-10 14:37] VITALS: BP 128/61; PULSE 82; RESP 17; TEMP 97.4; BMI 28.6
== END 2022-12-10 16:20 | disposition home or self-care (01) ==
LOC: JERFT 14:28
DX: S01.85XA Open bite of other part of head, initial encounter (principal); W54.0XXA Bitten by dog, initial encounter
CPT/HCPCS: 99283-25

== ENCOUNTER 2024-01-29 20:41 | Emergency (ER) | payer OTHER ==
[2024-01-29 20:55] VITALS: BP 111/58; PULSE 76; RESP 18; TEMP 97.8; BMI 28.3
[2024-01-29] MEDS: IBUPROFEN 600 MG TABLET (FP) PO ONE (21:37)
[2024-01-29] MEDS ORDERED: IBUPROFEN 600 MG TABLET (FP) PO ONE (21:37)
[2024-01-29] MEDS ORDERED: AMOXICILLIN 250 MG CAPSULE ONE (22:31)
[2024-01-29] MEDS: AMOXICILLIN 500 MG CAPSULE (FP) PO ONE (22:32)
== END 2024-01-29 22:55 | disposition home or self-care (01) ==
LOC: JER 20:41 → JERFT 20:41
DX: R10.12 Left upper quadrant pain (principal); J02.0 Streptococcal pharyngitis
CPT/HCPCS: 87651; 99283-25

== ENCOUNTER 2024-02-25 18:44 | Emergency (ER) | payer OTHER ==
[2024-02-25 18:58] VITALS: BP 115/58; PULSE 72; RESP 16; TEMP 97.9; BMI 28.3
== END 2024-02-25 19:49 | disposition home or self-care (01) ==
LOC: FER 18:44
DX: J02.9 Acute pharyngitis, unspecified (principal); Z20.822 Contact with and (suspected) exposure to COVID-19
CPT/HCPCS: 0241U-QW; 87651; 99283-25